=== PATIENT | male | born 1945 | race Caucasian/White ===

== ENCOUNTER 2023-08-10 06:42 | Inpatient (IN) | payer MEDICARE, BC, SELFPAY ==
[2023-08-10] VITALS (65 sets, daily range): BP systolic 110–171; BP diastolic 70–124; PULSE 103–148; TEMP 36.3–36.6; O2SAT 74–99; BMI 32.2; BMI 31.1
--- NOTE | 2023-08-10 07:12 | ECG_ITS ---
[facility] Test Date: 2023-08-10 Pat Name: ERIKA ASCENCIO Department: Room: - Gender: Male Instrumentation Supervisor: : 1945 Requested By: [id number] Order Number: [id number] Reading MD: GEN DODGE Measurements Intervals [place] Rate: 133 P: -[id number] [place]: -[id number] QRS: 69 QRSD: 78 T: 22 QT: 304 QTc: 382 Interpretive Statements 63029 Atrial fibrillation with rapid ventricular response [address] depression, probably digitalis effect 9140 abnormal rhythm ECG No previous ECG available for comparison Electronically Signed On 08-11-2023 5:28:55 EDT by GEN DODGE
--- NOTE | 2023-08-10 07:13 | XR_ITS ---
The [address] [address] Patient Name: ERIKA ASCENCIO MRN: [id number] date: 1945 Sex: M Assigned Patient Location: ER Current Patient Location: ER Accession/Order Number: [id number] Exam Date: 08/10/2023 07:24 Report Date: 08/10/2023 07:49 At the request of: RUPERTO REID Procedure: XR chest 1V EXAM: XR chest 1V HISTORY: SOB COMPARISON: None TECHNIQUE: AP view of the chest was obtained with portable technique at 7:16 AM. FINDINGS: Heart is within the upper limits of normal for size. Mild prominence of interstitial markings with more xcoj-ar-fragyego patchy density in the right lower lung field, consider edema related to congestive changes and/or infiltrates. No obvious pneumothorax. Mild degenerative changes in the dorsal spine. XR/XR chest 1V IMPRESSION: Congestive and/or infiltrative changes as noted. Electronically authenticated by: KOJO MUSE Date: 08/10/2023 07:49
--- NOTE | 2023-08-10 07:15 | ED.SOB1 ---
HPI - SOB/Dyspnea General Chief Complaint: Shortness of Breath/Dyspnea Stated Complaint: OTHER Time Seen by Provider: 08/10/23 07:03 Source: patient Mode of arrival: ambulance Limitations: no limitations History of Present Illness HPI Narrative: 78-year-old male presents to the emergency department for shortness of breath. It came on during the night. He is from [place] and is visiting a friend in this area. He does not have fever or chest pain and has no palpitations. He has a history of atrial fibrillation and in 2016 had cardioversion and appears to have been in sinus rhythm since then. 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 Since he was traveling from [place] he did not take his Lasix for a few days. He has not had a fever or cough. Related Data Home Medications ?Medication ?Instructions ?Recorded ?Confirmed amlodipine .ROUTE 08/10/23 atorvastatin .ROUTE 08/10/23 clonidine HCl .ROUTE 08/10/23 diltiazem HCl PO 08/10/23 hydrochlorothiazide PO 08/10/23 labetalol .ROUTE 08/10/23 rivaroxaban 20 mg tablet (Xarelto) 20 mg PO DAILY 08/10/23 08/10/23 tamsulosin PO 08/10/23 Allergies Allergy/AdvReac Type Severity Reaction Status Date / Time No Known Drug Allergies Allergy Verified 08/10/23 06:52 Review of Systems ROS Narrative A ten point review of systems is negative except as noted above. Exam Narrative Exam Narrative: Nurses note and vital signs reviewed and patient is not hypoxic. General: The patient appears in no apparent distress. Patient is resting comfortably on cart. Skin: Warm, dry, no pallor noted. There is no rash noted. Head: Normocephalic, atraumatic Eye: Normal conjunctiva, no drainage Ears, Nose, Mouth, and Throat: oral mucosa is moist. Nares patent. Cardiovascular: Irregularly irregular and tachycardic Respiratory: Patient is in no distress, no accessory muscle use, lungs are clear to auscultation, no wheezing, rales or rhonchi Back: non-tender, no CVA tenderness bilaterally to percussion. GI: Soft and nontender Musculoskeletal: The patient has no evidence of calf tenderness, bilateral edema present in both ankles, symmetrical pulses noted bilaterally Neurological: A&O, normal speech Psychiatric: Cooperative Constitutional Vital Signs, click to edit/add: Last Vital Signs Temp 97.9 F 08/10/23 06:43 Pulse 107 H 08/10/23 07:43 Resp 18 08/10/23 07:43 BP 153/104 H 08/10/23 08:04 Pulse Ox 94 L 08/10/23 08:08 O2 Del Method Room Air 08/10/23 08:08 Course Vital Signs Vital signs: Vital Signs Temperature 97.9 F 08/10/23 06:43 Pulse Rate 132 H 08/10/23 06:43 Respiratory Rate 22 H 08/10/23 06:43 Blood Pressure 170/90 H 08/10/23 06:43 Pulse Oximetry 90 L 08/10/23 06:43 Oxygen Delivery Method Room Air 08/10/23 06:43 Temperature 97.9 F 08/10/23 06:43 Pulse Rate 107 H 08/10/23 07:43 Respiratory Rate 18 08/10/23 07:43 Blood Pressure 153/104 H 08/10/23 08:04 Pulse Oximetry 94 L 08/10/23 08:08 Oxygen Delivery Method Room Air 08/10/23 08:08 MDM - SOB/Dyspnea MDM Narrative Medical decision making narrative: The patient presented with atrial fibrillation with RVR. He was given IV Cardizem bolus and placed on a drip. The patient appears to have heart failure as well with ankle edema and he did not take his Lasix for a few days. I do not clinically suspect pneumonia but blood cultures and lactic acid are ordered. Case discussed with the patient and his friend and he is being admitted. Differential Diagnosis Differential diagnosis: Likely acute exacerbation of chronic obstructive airways disease, congestive heart failure and community acquired pneumonia Lab Data Attestation: I reviewed the patient's lab results. Labs: Lab Results 08/10/23 Range/Units 06:50 WBC 22.8 H (4.0-11.0) 10^3/uL RBC 4.71 (4.70-6.10) 10^6/uL Hgb 14.6 (14.0-18.0) g/dL Hct 45.0 (42.0-54.0) % MCV 95.5 H (80.0-94.0) fL MCH 31.0 (25.9-34.0) pg MCHC 32.4 (29.9-35.2) g/dL RDW 13.2 (11.0-15.0) % Plt Count 260 (150-450) 10^3/uL MPV 11.1 (9.5-13.5) fL Neut % (Auto) 75.8 H (43.0-75.0) % Lymph % (Auto) 16.3 L (20.5-60.0) % [place] % (Auto) 6.4 (1.7-12.0) % Eos % (Auto) 0.4 L (0.9-7.0) % Baso % (Auto) 0.3 (0.2-2.0) % Neut # (Auto) 17.3 H (1.4-6.5) 10^3/uL Lymph # (Auto) 3.7 (1.2-3.8) 10^3/uL [place] # (Auto) 1.5 H (0.3-0.8) 10^3/uL Eos # (Auto) 0.1 (0.0-0.7) 10^3/uL Baso # (Auto) 0.1 (0.0-0.1) 10^3/uL Abs Immat Gran (auto) 0.19 H (0.00-0.03) 10^3/uL Imm/Tot Granulo (auto) 0.8 H (0.0-0.5) % Sodium 139 (136-145) mmol/L Potassium 4.2 (3.5-5.1) mmol/L Chloride 102 (98-107) mmol/L Carbon Dioxide 27.8 (21.0-32.0) mmol/L Anion Gap 13.4 BUN 26.0 H (7.0-18.0) mg/dL Creatinine 1.17 (0.70-1.30) mg/dL Est GFR ( Amer) >60 (>=60) Est GFR (Non-Af Amer) >60 (>=60) BUN/Creatinine Ratio 22.2 Glucose 128 H (74-106) mg/dL Calcium 9.5 (8.5-10.1) mg/dL Troponin I High Sens 18.8 (4.0-76.1) pg/mL NT-Pro-B Natriuret Pep 2208.0 H* (<=1800.0) pg/mL Imaging Data Chest x-ray: Radiologist's impression: ITS Impressions Chest X-Ray 08/10/23 07:13 IMPRESSION: Congestive and/or infiltrative changes as noted. Electronically authenticated by: KOJO MUSE Date: 08/10/2023 07:49 ECG Data Attestation: I personally reviewed and interpreted this ECG as follows: (EKG on my interpretation shows atrial fibrillation with a rate of 133.) Critical Care Time Critical Care Time Critical Care Time: Yes Total Critical Care Time: 40 Attestation: Due to the high probability of sudden and clinically significant deterioration in the patient's condition he/she required the highest level of my preparedness to intervene urgently I provided critical care time including documentation time, medication orders and management, reevaluation, vital sign assessment, ordering and reviewing of lab tests, ordering and reviewing of x-ray studies, and admission orders. Aggregate critical care time is 40 minutes including only time during which I was engaged in work directly related to his/her care and did not include time spent treating other patients simultaneously. Discharge Plan Discharge Chief Complaint: Shortness of Breath/Dyspnea Clinical Impression: Congestive heart failure, Atrial fibrillation with RVR Patient Disposition: Admitted As Inpatient Time of Disposition Decision: 08:05 Condition: Fair
[2023-08-10] MEDS: DILTIAZEM HCL 25 MG/5 ML VIAL 20 MG IV (07:26)
[2023-08-10 07:30] LABS: Basophils Absolute Auto 0.1 10^3/uL (0.0-0.1); Basophils Percent Auto 0.3 % (0.2-2.0); Eosinophils Absolute Auto 0.1 10^3/uL (0.0-0.7); Eosinophils Percent Auto 0.4 % (0.9-7.0); Hemoglobin 14.6 g/dL (14.0-18.0); Immature Granulocytes Abs Auto 0.19 10^3/uL (0.00-0.03); Immature Granulocytes Pct Auto 0.8 % (0.0-0.5); Lymphocytes Absolute Auto 3.7 10^3/uL (1.2-3.8); Lymphocytes Percent Auto 16.3 % (20.5-60.0); Mean Corpuscular HGB Conc 32.4 g/dL (29.9-35.2); Mean Corpuscular Volume 95.5 fL (80.0-94.0); Mean Platelet Volume 11.1 fL (9.5-13.5); Monocytes Absolute Auto 1.5 10^3/uL (0.3-0.8); Monocytes Percent Auto 6.4 % (1.7-12.0); Neutrophils Absolute Auto 17.3 10^3/uL (1.4-6.5); Neutrophils Percent Auto 75.8 % (43.0-75.0); Platelet Count 260 10^3/uL (150-450); Red Blood Count 4.71 10^6/uL (4.70-6.10); Red Cell Distribution Width 13.2 % (11.0-15.0); White Blood Count 22.8 10^3/uL (4.0-11.0)
[2023-08-10] MEDS: dilTIAZem HCL 125 MG in 0.9 % SODIUM CHLORIDE 100 ML IV (07:38)
[2023-08-10 07:45] LABS: Anion Gap 13.4; BUN Creatinine Ratio 22.2; Calcium 9.5 mg/dL (8.5-10.1); Carbon Dioxide 27.8 mmol/L (21.0-32.0); Chloride 102 mmol/L (98-107); Estimated GFR (African America >60 (>=60); Estimated GFR (Non-African Ame >60 (>=60); Glucose 128 mg/dL (74-106); Potassium 4.2 mmol/L (3.5-5.1); Sodium 139 mmol/L (136-145); Troponin I High Sensitivity 18.8 pg/mL (4.0-76.1)
[2023-08-10] MEDS: FUROSEMIDE 40 MG/4 ML VIAL IVP ×2 (08:04→20:17)
[2023-08-10 08:44] LABS: Lactate/Lactic Acid 1.7 mmol/L (0.4-2.0)
--- NOTE | 2023-08-10 09:09 | CA_ITS ---
Patient Name: ERIKA ASCENCIO MR#: [id number] : 1945 Exam Date: 08/10/2023 Ordering Doctor: DR Nikhil Ocampo . ECHOCARDIOGRAM REPORT PROCEDURE: CA ECHO DOPPLER COMPLETE INDICATIONS: Dyspnea, Afib w/RVR, CHF COMPARISON: None. DESCRIPTION: COMPLETE ECHOCARDIOGRAM Real-time transthoracic echocardiography with 2D, M-mode, spectral and color flow Doppler performed. QUALITY: Technical quality was good. LEFT VENTRICLE: Normal chamber size. Moderate concentric left ventricular hypertrophy. Systolic function is normal. LV EF: Normal left ventricular ejection fraction, (55%). DIASTOLIC: Not adequately assessed due to heart rhythm. ATRIAL SEPTUM: LEFT ATRIUM: Severe dilatation. RIGHT ATRIUM: Severe dilatation. RIGHT VENTRICLE: Moderate dilatation. Normal right ventricular systolic function. TRICUSPID VALVE: Normal mobility and thickness. No stenosis with mild to moderate regurgitation. Moderate pulmonary hypertension. RVSP 55 mmHg MITRAL VALVE: Normal mobility and thickness. No evidence of mitral valve stenosis. Mild mitral annular calcification. Mild to moderate mitral regurgitation. AORTIC VALVE: Normal trileaflet appearance. Thickened aortic valve. Normal leaflet mobility. No evidence of aortic valve stenosis. Mild aortic regurgitation. AORTIC ROOT: Normal diameter and appearance. PULMONIC VALVE: Normal thickness and mobility. No stenosis. Trivial regurgitation. PERICARDIUM: No evidence of pericardial effusion. IVC: Mild dilatation. measuring 2.2 cm. Collapses with inspiration. PLEURA: CONCLUSION: 1. Moderate concentric left ventricular hypertrophy with normal systolic function. LVEF is 55%. 2. Moderately dilated right ventricle with normal systolic function. 3. Severe biatrial dilatation. 4. Mild to moderate tricuspid and mitral regurgitation. 5. Mild aortic regurgitation. 6. Moderately elevated right-sided pressures. RVSP is 55 mmHg. Adult Echocardiography Procedure Report Left Ventricle LVEDD (3.7 - 5.6 cm): 4.67 cm LVESD (2.2 - 4.0 cm): 3.24 cm LVIVS thickness (0.6 - 1.2 cm): 1.64 cm LVPW thickness (0.5 - 1.0 cm): 1.49 cm e': 0.08 m/s E - e': 13.58 LVOT Max Gradient: 2.75 mm[Hg] LVOT Area (cm2): 0.83 m/s Peak Velocity (LVOT): 0.83 m/s Mean Velocity (LVOT): 0.57 m/s LVOT Diameter 2.01 cm Left Atrium LA Volume Index (2D A2C): 60.44 ml/m2 Left Atrium Systolic Dimension: 5.38 cm Mitral Valve Mitral Valve E-Wave Peak Velocity: 1.13 m/s Right Ventricle RV Internal Diastolic Dimension: 4.96 cm Aorta AO Root Diam: 3.23 cm Ascending Ao Diam: 3.13 cm Aortic Valve AoV Area (Peak Adán): 1.86 cm2, 1.86 cm2 AoV Area (VTI): 2.71 cm2, 2.71 cm2 Peak Velocity(Antegrade Flow): 1.42 m/s Peak Gradient(Antegrade Flow): 8.03 mm[Hg] Mean Velocity(Antegrade Flow): 0.92 m/s Mean Gradient(Antegrade Flow): 4.00 mm[Hg] Velocity Time Integral: 20.33 cm Tricuspid Valve Peak Velocity (Regurgitant Flow): 3.11 m/s, 2.98 m/s, 3.42 m/s Pulmonic Valve Mean Gradient: 3.82 mm[Hg] Mean Velocity: 0.95 m/s Peak Velocity: 1.33 m/s, 0.98 m/s Peak Gradient: 7.08 mm[Hg], 3.81 mm[Hg] Right Atrium Right Atrium Systolic Pressure: 131.78 ml, 131.78 ml Dictated by: Rayray Marina M.D. on 08/10/2023 at 17:49 Approved by: Rayray Marina M.D. on 08/10/2023 at 17:53
[2023-08-10 09:33] LABS: Alanine Aminotransferase 37 U/L (16-63); Albumin Globulin Ratio 1.3; Albumin Level 4.2 g/dL (3.4-5.0); Alkaline Phosphatase 126 U/L (46-116); Aspartate Amino Transferase 24 U/L (15-37); Bilirubin Direct 0.2 mg/dL (0.0-0.2); Globulin 3.2 g/dL; Total Protein 7.4 g/dL (6.4-8.2)
[2023-08-10 09:43] LABS: Free T3 2.33 pg/mL (2.18-3.98); Magnesium 2.3 mg/dL (1.8-2.4); Thyroid Stimulating Hormone 1.268 uIU/mL (0.358-3.740)
--- NOTE | 2023-08-10 10:19 | P.HP_ITS ---
HPI H&P: HPI History of Present Illness Chief complaint: CHF A-FIB W/RVR Narrative: Presented to the emergency room with feeling his heart racing. He has been off of his water pills for the last 2 days. In ER found to be A-fib with rapid ventricular response, also acute combined congestive heart failure. When I evaluated patient in the emergency room, he was still having some shortness of breath. Some mild conversational dyspnea. Heart rate improved but still tachycardic. Opioid HPI Opioid Management Most Recent Opioid Data: Last Pain Assessment 08/10/23 09:58 Last ORT Total Score 0 08/10/23 09:51 Last ORT Risk Category Low Risk 08/10/23 09:51 Review of Systems ROS Status of ROS 10 or more systems reviewed and unremark able except as noted in history and below Respiratory Reports: cough PFSH PFSH Medical History (Updated 08/10/23 @ 10:12 by Abril Weeks) History of cardioversion ?Z92.89 - Personal history of other medical treatment (ICD-10) HTN (hypertension) ?I10 - Essential (primary) hypertension (ICD-10) Surgical History (Updated 08/10/23 @ 10:12 by Abril Weeks) History of hip replacement ?Z96.649 - Presence of unspecified artificial hip joint (ICD-10) Social History (Updated 08/10/23 @ 10:14 by Abril Weeks) Within the past year, how many standard drinks containing alcohol did you have on a typical day: 1 or 2 Total score: 0 Score interpretation: A score less than 4 is consistent with normal alcohol consumption. Smoking status: Light tobacco smoker What tobacco products do you use: cigarettes Cigarettes per day: 5 Highest level of school completed/degree received: high school graduate Meds Home Medications and Allergies Home Medications ?Medication ?Instructions ?Recorded ?Confirmed ?Type amlodipine 10 mg tablet 10 mg PO QDAY 08/10/23 08/10/23 History atorvastatin 20 mg tablet 20 mg PO QPM 08/10/23 08/10/23 History clonidine HCl 0.1 mg tablet 0.1 mg PO BID 08/10/23 08/10/23 History diltiazem HCl 120 mg 120 mg PO QDAY 08/10/23 08/10/23 History capsule,extended release 24 hr furosemide 20 mg tablet 20 mg PO BID 08/10/23 08/10/23 History labetalol 200 mg tablet 400 mg PO BID 08/10/23 08/10/23 History rivaroxaban 20 mg tablet (Xarelto) 20 mg PO DAILY 08/10/23 08/10/23 History tamsulosin 0.4 mg capsule 0.4 mg PO QDAY 08/10/23 08/10/23 History Allergies Allergy/AdvReac Type Severity Reaction Status Date / Time No Known Drug Allergies Allergy Verified 08/10/23 06:52 Exam Constitutional Vital Signs, click to edit/add: Last Vital Signs Temp 97.8 F 08/10/23 09:51 Pulse 118 H 08/10/23 09:40 Resp 22 H 08/10/23 09:40 BP 148/99 H 08/10/23 09:41 Pulse Ox 99 08/10/23 09:40 O2 Del Method Room Air 08/10/23 09:51 Documenting provider has reviewed patient's vital signs: yes Common normals: apparent distress (Mild conversational dyspnea) HENMT Common normals: normocephalic Chest Common normals: inspection of chest normal Respiratory Common normals: no use of accessory muscles; abnormal respiratory effort (Mild tachypnea with mild conversational dyspnea) Auscultation: rhonchi (Minimal rhonchi in bases, no egophony) Cardio Common normals: irregular rate and irregular rhythm Rate: tachycardic Rhythm: abnormal rhythm Extremity Common normals: abnormal to inspection (3+ edema) Results Labs Labs: Short CBC 08/10/23 Range/Units 06:50 WBC 22.8 H (4.0-11.0) 10^3/uL Hgb 14.6 (14.0-18.0) g/dL Hct 45.0 (42.0-54.0) % Plt Count 260 (150-450) 10^3/uL BMP 08/10/23 06:50 Sodium 139 Potassium 4.2 Chloride 102 Carbon Dioxide 27.8 BUN 26.0 H Creatinine 1.17 Glucose 128 H Calcium 9.5 Liver Function 08/10/23 Range/Units 06:50 Total Bilirubin 1.0 (0.2-1.0) mg/dL Direct Bilirubin 0.2 (0.0-0.2) mg/dL AST 24 (15-37) U/L ALT 37 (16-63) U/L Alkaline Phosphatase 126 H (46-116) U/L Albumin 4.2 (3.4-5.0) g/dL Assessment and Plan Assessment and Plan (1) Atrial fibrillation with RVR: (2) Congestive heart failure: Plan Tachycardia cardiac, respiratory distress, uncontrolled hypertension sick, leukocytosis, elevated BUN secondary to atrial fibrillation with rapid ventricular response which resulted in acute combined congestive heart failure. Given IV Lasix. Placed on Cardizem drip. Heart rate is slowly improving. Will place patient in the intensive care unit. Add oral Cardizem and try to wean the Cardizem drip. Check on echocardiogram. Track and trend high-sensitivity troponins. Patient is a current smoker with mild COPD-with a possible acute exacerbation with leukocytosis and increasing cough. Will start patient on IV antibiotics. Hold off on aerosols to try to prevent the tachycardia. Check on sputum culture. Acute combined congestive heart failure-likely secondary to the atrial fibrillation with rapid ventricular sponsor and the fact that has not taken his diuretics the last 2 days. Increase sodium intake last night as well. Check echocardiogram and diurese today. Hypertension-continue with home medications Admission status: Patient with acute combined congestive heart failure acute exacerbation of COPD and acute exacerbation of his atrial fibrillation with rap id ventricular response. This patient on the Cardizem drip in the intensive care unit. Greater than 75% chance that his medically necessary treatment will span [address] patient in inpatient status.
[2023-08-10 10:26] LABS: Bilirubin Urine NEGATIVE (NEGATIVE); Blood Urine NEGATIVE (NEGATIVE); Clarity Urine CLEAR (CLEAR); Color Urine LT. YELLOW (YELLOW); Glucose Urine UA NEGATIVE (NEGATIVE); Ketones Urine NEGATIVE (NEGATIVE); Leukocyte Esterase Urine NEGATIVE (NEGATIVE); Nitrite Urine NEGATIVE (NEGATIVE); Protein Urine NEGATIVE (NEG/TRACE); Urobilinogen Urine 0.2 EU/dL (0.2-1.0)
[2023-08-10] MEDS: DILTIAZEM HCL 60 MG TABLET PO ×3 (10:27→22:04)
[2023-08-10] MEDS: LEVOFLOXACIN IN DEXTROSE 5 % 750 MG/150 ML IV.SOLN 100 MG IV (10:27)
[2023-08-10 10:29] LABS: Lactate/Lactic Acid 1.6 mmol/L (0.4-2.0)
[2023-08-10 10:31] LABS: Troponin I High Sensitivity 24.4 pg/mL (4.0-76.1)
[2023-08-10 10:36] LABS: Bacteria Urine NONE SEEN #/HPF (NONE SEEN); Mucus Urine NONE SEEN (NONE SEEN); RBC Urine 0-2 #/HPF (0-2); WBC Urine NONE SEEN #/HPF (NONE SEEN)
[2023-08-10 10:37] LABS: Cast Seen? NONE SEEN #/LPF (NONE SEEN); Crystals Seen? None Seen #/HPF (None Seen); Squamous Epithelial Cell Urine NONE SEEN #/LPF (NONE/RARE)
[2023-08-10 12:58] LABS: Troponin I High Sensitivity 20.6 pg/mL (4.0-76.1)
[2023-08-10 13:23] LABS: Alanine Aminotransferase 30 U/L (16-63); Albumin Globulin Ratio 1.2; Albumin Level 3.7 g/dL (3.4-5.0); Alkaline Phosphatase 117 U/L (46-116); Aspartate Amino Transferase 17 U/L (15-37); Bilirubin Direct 0.3 mg/dL (0.0-0.2); Bilirubin Total 1.6 mg/dL (0.2-1.0); Free T3 2.17 pg/mL (2.18-3.98); Globulin 3.1 g/dL; Magnesium 2.1 mg/dL (1.8-2.4); Thyroid Stimulating Hormone 0.496 uIU/mL (0.358-3.740); Total Protein 6.8 g/dL (6.4-8.2)
--- NOTE | 2023-08-10 13:55 | SWNOTE1 ---
SW met with pt to discuss dc needs. Pt voices he has no needs at this time. Pt is independent. Important Message from Medicare reviewed and discussed with patient. Pt. verbalized understanding and signed the form. Original given to patient and copy placed in patient?s chart.
[2023-08-10] MEDS: METOPROLOL TARTRATE 25 MG TABLET PO ×2 (15:02→22:04)
[2023-08-10] MEDS: RIVAROXABAN 10 MG TABLET 20 MG PO (17:20)
[2023-08-10] MEDS: TAMSULOSIN HCL 0.4 MG CAPSULE 0.400000000000000022 MG PO (20:18)
[2023-08-10] MEDS: CLONIDINE HCL 0.1 MG TABLET 0.100000000000000006 MG PO (20:18)
[2023-08-10] MEDS: LABETALOL HCL 200 MG TABLET 400 MG PO (20:18)
[2023-08-10] MEDS: ATORVASTATIN CALCIUM 20 MG TABLET PO (20:18)
[2023-08-11] VITALS (46 sets, daily range): BP systolic 106–146; BP diastolic 72–97; PULSE 58–136; TEMP 36.6–37; O2SAT 95–98
[2023-08-11] MEDS: DILTIAZEM HCL 60 MG TABLET PO (04:04)
[2023-08-11 04:53] LABS: Basophils Percent Auto 0.2 % (0.2-2.0); Hemoglobin 13.5 g/dL (14.0-18.0); Immature Granulocytes Abs Auto 0.23 10^3/uL (0.00-0.03); Immature Granulocytes Pct Auto 1.1 % (0.0-0.5); Lymphocytes Absolute Auto 2.2 10^3/uL (1.2-3.8); Lymphocytes Percent Auto 10.3 % (20.5-60.0); Mean Corpuscular HGB Conc 33.8 g/dL (29.9-35.2); Mean Corpuscular Hemoglobin 31.6 pg (25.9-34.0); Mean Corpuscular Volume 93.7 fL (80.0-94.0); Mean Platelet Volume 11.4 fL (9.5-13.5); Monocytes Absolute Auto 1.2 10^3/uL (0.3-0.8); Monocytes Percent Auto 5.4 % (1.7-12.0); Neutrophils Absolute Auto 18.1 10^3/uL (1.4-6.5); Platelet Count 235 10^3/uL (150-450); Red Blood Count 4.27 10^6/uL (4.70-6.10); Red Cell Distribution Width 13.2 % (11.0-15.0); White Blood Count 21.8 10^3/uL (4.0-11.0)
[2023-08-11 05:29] LABS: Anion Gap 13.3; BUN Creatinine Ratio 27.9; Calcium 9.2 mg/dL (8.5-10.1); Carbon Dioxide 27.1 mmol/L (21.0-32.0); Chloride 100 mmol/L (98-107); Estimated GFR (African America >60 (>=60); Estimated GFR (Non-African Ame 54 (>=60); Glucose 157 mg/dL (74-106); Potassium 3.4 mmol/L (3.5-5.1); Sodium 137 mmol/L (136-145); Troponin I High Sensitivity 19.2 pg/mL (4.0-76.1)
[2023-08-11] MEDS: LABETALOL HCL 200 MG TABLET 400 MG PO ×3 (07:23→20:42)
[2023-08-11] MEDS: BUMETANIDE 10 MG in 0.9 % SODIUM CHLORIDE 160 ML 20 MG IV (08:06)
[2023-08-11] MEDS: POTASSIUM CHLORIDE 10 MEQ ER TABLET 20 MEQ PO ×2 (08:25→20:42)
[2023-08-11] MEDS: LEVOFLOXACIN IN DEXTROSE 5 % 750 MG/150 ML IV.SOLN 100 MG IV (08:26)
[2023-08-11] MEDS: CLONIDINE HCL 0.1 MG TABLET 0.100000000000000006 MG PO ×2 (08:26→20:43)
--- NOTE | 2023-08-11 08:39 | P.PN_ITS ---
Progress Note: Subjective Subjective Interval history: Patient states he does better this morning. Still some dyspnea but improved. Patient has not been ambulating yet though this morning. Exam Constitutional Vital Signs, click to edit/add: Last Vital Signs Temp 98 F 08/11/23 04:00 Pulse 120 H 08/11/23 08:00 Resp 18 08/11/23 05:00 BP 146/97 H 08/11/23 04:04 Pulse Ox 96 08/11/23 06:00 O2 Del Method Room Air 08/11/23 04:00 Documenting provider has reviewed patient's vital signs: yes Common normals: no apparent distress (Mild conversational dyspnea-resolved) HENMT Common normals: normocephalic Chest Common normals: inspection of chest normal Respiratory Common normals: normal respiratory effort (Mild tachypnea with mild conversational dyspnea-resolved) and no use of accessory muscles Auscultation: rales and rhonchi (Rales and rhonchi in bases persisting) Cardio Common normals: irregular rate and irregular rhythm Rate: tachycardic Rhythm: abnormal rhythm Extremity Common normals: abnormal to inspection (3+ edema) Progress Note: Objective Labs Labs: Short CBC 08/11/23 Range/Units 03:39 WBC 21.8 H (4.0-11.0) 10^3/uL Hgb 13.5 L (14.0-18.0) g/dL Hct 40.0 L (42.0-54.0) % Plt Count 235 (150-450) 10^3/uL BMP 08/11/23 03:39 Sodium 137 Potassium 3.4 L Chloride 100 Carbon Dioxide 27.1 BUN 36.0 H Creatinine 1.29 Glucose 157 H Calcium 9.2 Liver Function 08/10/23 08/10/23 Range/Units 06:50 12:27 Total Bilirubin 1.0 1.6 H (0.2-1.0) mg/dL Direct Bilirubin 0.2 0.3 H (0.0-0.2) mg/dL AST 24 17 (15-37) U/L ALT 37 30 (16-63) U/L Alkaline Phosphatase 126 H 117 H (46-116) U/L Albumin 4.2 3.7 (3.4-5.0) g/dL Urine 08/10/23 Range/Units 10:04 Urine Color Lt. yellow (YELLOW) Urine Clarity Clear (CLEAR) Urine pH 6.0 (5.0-9.0) Ur Specific [place] 1.010 (1.005-1.025) Urine Protein Negative (NEG/TRACE) mg/dL Urine Glucose (UA) Negative (NEGATIVE) mg/dL Progress Note: A&P Assessment and Plan (1) Atrial fibrillation with RVR: (2) Congestive heart failure: Plan Admission findings: Tachycardia, respiratory distress, uncontrolled hypertension, leukocytosis, elevated BUN secondary to atrial fibrillation with rapid ventricular response which resulted in acute combined congestive heart failure. Given IV Lasix. Yesterday and placed on Cardizem drip. His Cardizem drip has been able to be weaned off. Good diuresis yesterday but still has some significant peripheral edema and fluid on the lungs so try Bumex drip today. Echocardiogram with good ejection fraction but very large atrial size so patient is unlikely to get out of atrial fibrillation. Discussed possible future Watchman device. With good diuresis today possible discharge tomorrow Patient is a current smoker with mild COPD-with a possible acute exacerbation with leukocytosis and increasing cough. Overall this seems to be improved. Acute combined congestive heart failure-likely secondary to the atrial fibrillation with rapid ventricular sponsor and the fact that has not taken his diuretics the last 2 days. Bumex drip today as outlined above, Hypertension-continue with home medications Admission status: Patient with acute combined congestive heart failure acute exacerbation of COPD and acute exacerbation of his atrial fibrillation with rapid ventricular response. This patient on the Cardizem drip in the intensive care unit. Greater than 75% chance that his medically necessary treatment will span [address] patient in inpatient status. Possible discharge tomorrow ?
[2023-08-11] MEDS: DILTIAZEM HCL 240 MG CAP.ER.24H PO (08:55)
--- NOTE | 2023-08-11 09:42 | CM.NOTE ---
Rounds made with Dr. Ocampo, discussed with pt about CHF and need for IV Bumex drip for today. No discharge to home today, possible discharge tomorrow.
[2023-08-11] MEDS: RIVAROXABAN 10 MG TABLET 20 MG PO (17:15)
[2023-08-11] MEDS: TAMSULOSIN HCL 0.4 MG CAPSULE 0.400000000000000022 MG PO (20:42)
[2023-08-11] MEDS: ATORVASTATIN CALCIUM 20 MG TABLET PO (20:42)
[2023-08-12] VITALS (15 sets, daily range): BP systolic 112–113; BP diastolic 69–75; PULSE 99–124; TEMP 36.6–36.8; O2SAT 95
[2023-08-12 04:34] LABS: Basophils Percent Auto 0.2 % (0.2-2.0); Eosinophils Percent Auto 0.1 % (0.9-7.0); Hematocrit 39.5 % (42.0-54.0); Immature Granulocytes Abs Auto 0.14 10^3/uL (0.00-0.03); Immature Granulocytes Pct Auto 0.7 % (0.0-0.5); Lymphocytes Absolute Auto 2.8 10^3/uL (1.2-3.8); Lymphocytes Percent Auto 14.7 % (20.5-60.0); Mean Corpuscular HGB Conc 32.9 g/dL (29.9-35.2); Mean Platelet Volume 11.2 fL (9.5-13.5); Monocytes Absolute Auto 1.4 10^3/uL (0.3-0.8); Monocytes Percent Auto 7.2 % (1.7-12.0); Neutrophils Absolute Auto 14.6 10^3/uL (1.4-6.5); Neutrophils Percent Auto 77.1 % (43.0-75.0); Platelet Count 221 10^3/uL (150-450); Red Cell Distribution Width 13.3 % (11.0-15.0); White Blood Count 18.9 10^3/uL (4.0-11.0)
[2023-08-12 04:55] LABS: Anion Gap 9.8; BUN Creatinine Ratio 35.7; Calcium 8.9 mg/dL (8.5-10.1); Carbon Dioxide 30.5 mmol/L (21.0-32.0); Chloride 102 mmol/L (98-107); Estimated GFR (African America >60 (>=60); Estimated GFR (Non-African Ame 54 (>=60); Glucose 141 mg/dL (74-106); Potassium 3.3 mmol/L (3.5-5.1); Sodium 139 mmol/L (136-145); Troponin I High Sensitivity 17.6 pg/mL (4.0-76.1)
[2023-08-12] MEDS: LABETALOL HCL 200 MG TABLET 400 MG PO (06:04)
[2023-08-12] MEDS: LEVOFLOXACIN IN DEXTROSE 5 % 750 MG/150 ML IV.SOLN 100 MG IV (08:00)
[2023-08-12] MEDS: CLONIDINE HCL 0.1 MG TABLET 0.100000000000000006 MG PO (08:00)
[2023-08-12] MEDS: DILTIAZEM HCL 240 MG CAP.ER.24H PO (08:00)
[2023-08-12] MEDS: POTASSIUM CHLORIDE 10 MEQ ER TABLET 20 MEQ PO (08:00)
--- NOTE | 2023-08-12 08:45 | P.DS_ITS ---
DS: Providers Provider Date of admission: 08/10/23 09:29 Primary care physician: Non-Staff Physician, Consults: 08/10/23 09:06 Consult to Pharmacy Routine Consulting Provider: Reason for consultation: Please [place] me when Med Rec is Updated Has provider been notified: No DS: Diagnosis Discharge Diagnosis (1) Atrial fibrillation with RVR: (2) Congestive heart failure: Plan Admission findings: Tachycardia, respiratory distress, uncontrolled hypertension, leukocytosis, elevated BUN secondary to atrial fibrillation with rapid ventricular response which resulted in acute combined congestive heart failure. Improving at the time of discharge Patient is a current smoker with mild COPD-with a possible acute exacerbation with leukocytosis and increasing cough. Improving at the time of discharge Acute combined congestive heart failure-likely secondary to the atrial fibrillation with rapid ventricular sponsor and the fact that has not taken his diuretics the last 2 days. Improving at the time of discharge Hypertension-stable at the time of discharge Admission status: Patient with acute combined congestive heart failure acute exacerbation of COPD and acute exacerbation of his atrial fibrillation with rapid ventricular response. This patient on the Cardizem drip in the intensive care unit. Greater than 75% chance that his medically necessary treatment will span 2 midnights. Placed patient in inpatient status. ? ? DS: Summary Hospital Course Hospital Course: Patient presented to the emergency room after being off of his diuretics for couple days, had increasing swelling and shortness of breath. Found to be in atrial fibrillation with rapid ventricular response with acute combined congestive heart failure and had mild acute exacerbation of COPD. Patient diuresed well initially with IV Lasix, was given a Bumex drip today prior to discharge. His troponins remain normal, his BNP was elevated on admission but is returned to baseline today. Still tachycardic at times I think this is secondary to fluid adjustment. Patient feels his breathing is back to his baseline. At this point he will be discharged home in improving condition. Medications see list. Follow-up with PCP. Significantly elevated right atrial size, would be an excellent Watchman device candidate, patient already discussed with diabetic educator Time Spent with Patient Time attestation: Total time spent providing and/or coordinating discharge services: Exam Constitutional Vital Signs, click to edit/add: Last Vital Signs Temp 97.9 F 08/12/23 07:00 Pulse 101 H 08/12/23 08:00 Resp 17 08/12/23 07:40 BP 113/69 08/12/23 07:27 Pulse Ox 95 08/12/23 07:27 O2 Del Method Room Air 08/12/23 07:50 Documenting provider has reviewed patient's vital signs: yes Common normals: no apparent distress (Mild conversational dyspnea-resolved) HENMA Common normals: normocephalic Chest Common normals: inspection of chest normal Respiratory Common normals: normal respiratory effort (Mild tachypnea with mild conversational dyspnea-resolved) and no use of accessory muscles Auscultation: rhonchi (Much improved from admission); no rales Cardio Common normals: irregular rate and irregular rhythm Rate: tachycardic Rhythm: abnormal rhythm Extremity Common normals: normal to inspection and no clubbing, cyanosis or edema DS: Data Data Completed and Pending Labs on day of discharge: Labs from last 24 hours 08/12/23 03:40 WBC 18.9 H RBC 4.20 L Hgb 13.0 L Hct 39.5 L MCV 94.0 MCH 31.0 MCHC 32.9 RDW 13.3 Plt Count 221 MPV 11.2 Neut % (Auto) 77.1 H Lymph % (Auto) 14.7 L [place] % (Auto) 7.2 Eos % (Auto) 0.1 L Baso % (Auto) 0.2 Neut # (Auto) 14.6 H Lymph # (Auto) 2.8 [place] # (Auto) 1.4 H Eos # (Auto) 0.0 Baso # (Auto) 0.0 Abs Immat Gran (auto) 0.14 H Imm/Tot Granulo (auto) 0.7 H Sodium 139 Potassium 3.3 L Chloride 102 Carbon Dioxide 30.5 Anion Gap 9.8 BUN 46.0 H Creatinine 1.29 Est GFR ( Amer) >60 Est GFR (Non-Af Amer) 54 L BUN/Creatinine Ratio 35.7 Glucose 141 H Calcium 8.9 Troponin I High Sens 17.6 NT-Pro-B Natriuret Pep 1011.0 Discharge Plan Discharge Disposition: Home, Self-Care Condition: Fair Discharge Medications: New levofloxacin 750 mg tablet 750 mg PO DAILY 7 Days Qty: 7 0RF Continued Xarelto 20 mg tablet 20 mg PO DAILY Rx Instructions: must administer with evening meal amlodipine 10 mg tablet 10 mg PO QDAY atorvastatin 20 mg tablet 20 mg PO QPM clonidine HCl 0.1 mg tablet 0.1 mg PO BID diltiazem HCl 120 mg capsule,extended release 24hr 120 mg PO QDAY labetalol 200 mg tablet 400 mg PO BID tamsulosin 0.4 mg capsule 0.4 mg PO QDAY furosemide 20 mg tablet 20 mg PO BID latanoprost 0.005 % drops 1 drp ophthalmic (eye) DAILY Activity: increase activity as tolerated Diet: advance to your usual diet Print Language: Swiss Patient Instructions: Levofloxacin (By mouth) (Levaquin, Levaquin Leva-parisa), A- fib (Atrial Fibrillation) (DC) Forms: Portal Instructions Follow Up Appointments: Keep scheduled appts with Cardiology and Primary Care DrNelsy Discharge Date/Time: 08/12/23 09:15
--- NOTE | 2023-08-12 09:12 | PC.NURSE ---
iv and tele discontinued. sig other at bedside. discharge instructions reviewed with pt and sig other, both verbalize understanding. ambulated to exit, discharged to private vehicle.
--- NOTE | 2023-08-12 09:26 | CM.NOTE ---
Rounds made with Dr. Ocampo. Plan for discharge today. Keep appointments previously scheduled with PCP and Cardiology. Verbalizes understanding.
--- NOTE | 2023-08-18 15:28 | CM.DCFOLLOWU ---
1st attempt 08/18/23, no answer
== END 2023-08-12 09:15 | disposition home or self-care (01) | DRG 308 ==
LOC: ER 09:45 → ICU 08-11 06:29
PROVIDERS: Admitting Provider Family Medicine; Emergency Provider Emergency Medicine; Visit Provider Family Medicine
DX: I48.91 Unspecified atrial fibrillation (principal); I50.41 Acute combined systolic (congestive) and diastolic (congestive) heart failure; J44.1 Chronic obstructive pulmonary disease with (acute) exacerbation; I11.0 Hypertensive heart disease with heart failure; R06.03 Acute respiratory distress; F17.210 Nicotine dependence, cigarettes, uncomplicated; Z79.899 Other long term (current) drug therapy; Z96.649 Presence of unspecified artificial hip joint; Z79.01 Long term (current) use of anticoagulants
CPT/HCPCS: 36415; 71045; 80048; 80076; 81001; 83605; 83735; 83880; 84436; 84443; 84481; 84484; 85025; 87040; 87070; 87086; 93005; 93306; 94761; 96366; 96367; 96368; 96376; 99285